=== PATIENT | female | born 1980 | race African-American/Black ===

== ENCOUNTER 2017-05-01 08:39 | Emergency (ER) | payer OTHER ==
[2017-05-01 08:46] VITALS: BP 138/97; PULSE 93; TEMP 98; BMI 21.0
--- NOTE | 2017-05-01 09:18 | PDOC ---
History of Present Illness - General Chief Complaint: Injury Stated Complaint: RIGHT Shoulder Dislocation Time Seen by Provider: 05/01/17 09:15 History Source: Patient Exam Limitations: No Limitations - History of Present Illness Initial Comments: 05/01/17 09:30 slipped and fell on the ice landing on her right shoulder. had a deformity and was unable to lift and as she was registered felt a pop come. Has never had a shoulder dislocation in the past, denies any other injury. Denies numbness or tingling to hands, no head injury Occurred: reports: just prior to arrival Severity: reports: mild, moderate Pain Location: reports: upper extremity (right shoulder ) Loss of Consciousness: no loss of consciousness Associated Symptoms (Fall): denies symptoms Past History - Travel Traveled outside of the country in the last 30 days: No Close contact w/someone who was outside of country & ill: No - Past Medical History Allergies/Adverse Reactions: Allergies Allergy/AdvReac Type Severity Reaction Status Date / Time No Known Allergies Allergy Verified 05/01/17 08:46 Home Medications: Ambulatory Orders Oxycodone HCl/Acetaminophen [Percocet 5-325 mg Tablet -] 1 - 2 tab PO Q4H PRN # 10 tablet MDD 4 05/01/17 CVA: No COPD: No - Suicide/Smoking/Psychosocial Hx Smoking History: Never smoked Hx Alcohol Use: Yes (SOCIAL) Drug/Substance Use Hx: No Substance Use Type: None Review of Systems - Review of Systems Able to Perform ROS?: Yes Is the patient limited Hebrew proficient: Yes Constitutional: Yes: Symptoms Reported, See HPI Respiratory: Yes: See HPI. No: Symptoms reported, Cough, Shortness of Breath, Wheezing All Other Systems: Reviewed and Negative *Physical Exam - Vital Signs Last Vital Signs Temp Pulse Resp BP Pulse Ox 98.0 F 93 H 20 138/97 98 05/01/17 08:42 05/01/17 08:42 05/01/17 08:42 05/01/17 08:42 05/01/17 08:42 - Physical Exam General Appearance: Yes: Nourished, Appropriately Dressed, Mild Distress, Moderate Distress HEENT: positive: SANDY, Normal ENT Inspection, TMs Normal, Pharynx Normal Neck: positive: Supple. negative: Tender, Lymphadenopathy (R), Lymphadenopathy (L) Respiratory/Chest: positive: Lungs Clear, Normal Breath Sounds Musculoskeletal: positive: Normal Inspection Extremity: positive: Normal Capillary Refill, Tender. negative: Normal Inspection, Normal Range of Motion (agent with tenderness and fullness to right shoulder capsule, unable to abduct past approximately 30, has no crepitus or step-offs to clavicle or scapula but tender to the upper humeral area. Hand is strong flexion and extension, and neurovascular intact to fingers) Integumentary: positive: Normal Color Neurologic: positive: chronic specialist II-XII NML intact, Fully Oriented, Alert, Normal Mood/ Affect, Normal Response, Motor Strength 5/5 Progress Note - Progress Note Progress Note: X-ray negative for fractures or dislocation, no evidence of before meals separation or any other joint deformity. Sling provided, will give Percocet No. 10 tablets and referred to orthopedist for further evaluation *DC/Admit/Observation/Transfer Diagnosis at time of Disposition: Right shoulder injury Qualifiers: Encounter type: initial encounter Qualified Code(s): S49.91XA - Unspecified injury of right shoulder and upper arm, initial encounter - Discharge Dispostion Disposition: HOME Condition at time of disposition: Stable Admit: No - Prescriptions Prescriptions: Oxycodone HCl/Acetaminophen [Percocet 5-325 mg Tablet -] 1 - 2 tab PO Q4H PRN # 10 tablet MDD 4 PRN Reason: Pain - Referrals Referrals: John Ramos MD [Staff Physician] - - Patient Instructions Printed Discharge Instructions: DI for Shoulder Sprain Additional Instructions: Rest, ice to area on and off for 15 minutes 4-6 times a day Avoid heavy lifting or exercise until pain and swelling is resolved or until further directed Keep area highly elevated to reduce swelling Use splints/Yoseph wrap as directed Followup with orthopedist in one to 2 days if not improving, if significantly improved may wait one week for followup with orthopedist May use ibuprofen 2-200 mg tablets every 6 hours as needed for pain - Post Discharge Activity Forms/Work/School Notes: Back to Work, Parent(s) Back to Work Note
[2017-05-01] MEDS ORDERED: IBUPROFEN 600 MG TABLET (FP) PO ONE (09:31)
== END 2017-05-01 09:53 | disposition home or self-care (01) ==
LOC: JERFT 08:39
DX: S49.81XA Other specified injuries of right shoulder and upper arm, initial encounter (principal); W00.2XXA Other fall from one level to another due to ice and snow, initial encounter; Y93.89 Activity, other specified; Y92.89 Other specified places as the place of occurrence of the external cause; Y99.8 Other external cause status
CPT/HCPCS: 73030-TC-RT; 99281-25

== ENCOUNTER 2017-09-18 05:41 | Emergency (ER) | payer OTHER ==
[2017-09-18 06:04] VITALS: BP 98/61; PULSE 72; TEMP 97.2; BMI 22.8
--- NOTE | 2017-09-18 06:34 | PDOC ---
History of Present Illness <José Miguel Nunez - Last Filed: 09/18/17 07:07> <Mati Thomas - Last Filed: 09/19/17 23:31> - General Chief Complaint: Chest Pain Stated Complaint: CHEST DISCOMFORT/ 20 WEEKS Time Seen by Provider: 09/18/17 05:53 - History of Present Illness Initial Comments: 09/18/17 06:27 "The patient is a 36 year old female, 20 weeks , who presents to the emergency department with, chest discomfort. The patient describes her chest discomfort as a pleuritic, nonradiating, sharp, midsternal chest pain. She reports that the pain has been present for several days but acutely worsened last night. Pt denies SOB but states that the pain prohibits her from inhaling fully. The patient reports that 2 weeks ago when traveling back from [place] on business she began to feel a numbness and pain shooting up from her right calf that gradually extended to her right buttock. She denies any significant swelling in her legs but still feels the numbness and pain. She denies recent fevers, chills, headache or dizziness. She denies recent nausea, vomit, diarrhea or constipation. She denies recent dysuria, frequency, urgency or hematuria. Allergies: NKA Past surgical history: None reported. Social history: Nonsmoker. Denies EtOH use and recreational drug use. " (Mati Thomas) Past History <José Miguel Nunez - Last Filed: 09/18/17 07:07> - Past Medical History CVA: No COPD: No - Suicide/Smoking/Psychosocial Hx Smoking History: Never smoked Have you smoked in the past 12 months: No Information on smoking cessation initiated: No Hx Alcohol Use: No Drug/Substance Use Hx: No Substance Use Type: None <Mati Thomas - Last Filed: 09/19/17 23:31> - Past Medical History Allergies/Adverse Reactions: Allergies Allergy/AdvReac Type Severity Reaction Status Date / Time No Known Allergies Allergy Verified 09/18/17 05:59 Home Medications: Ambulatory Orders Oxycodone HCl/Acetaminophen [Percocet 5-325 mg Tablet -] 1 - 2 tab PO Q4H PRN # 10 tablet MDD 4 05/01/17 Review of Systems <José Miguel Nunez - Last Filed: 09/18/17 07:07> <Mati Thomas - Last Filed: 09/19/17 23:31> - Review of Systems Comments:: 09/18/17 06:30 "GENERAL/CONSTITUTIONAL: No fever or chills. No weakness. HEAD, EYES, EARS, NOSE AND THROAT: No change in vision. No ear pain or discharge. No sore throat. CARDIOVASCULAR: + Chest pain. No shortness of breath. RESPIRATORY: No cough, wheezing, or hemoptysis. GASTROINTESTINAL: No nausea, vomiting, diarrhea or constipation. GENITOURINARY: No dysuria, frequency, or change in urination. MUSCULOSKELETAL: + Pain radiating up from the right calf to the right buttock. No joint or muscle swelling. No neck or back pain. SKIN: No rash NEUROLOGIC: No headache, vertigo, loss of consciousness, or change in strength. ENDOCRINE: No increased thirst. No abnormal weight change. HEMATOLOGIC/LYMPHATIC: No anemia, easy bleeding, or history of blood clots. ALLERGIC/IMMUNOLOGIC: No hives or skin allergy. " (Mati Thomas) *Physical Exam <José Miguel Nunez - Last Filed: 09/18/17 07:07> <Mati Thomas - Last Filed: 09/19/17 23:31> - Vital Signs Last Vital Signs Temp Pulse Resp BP Pulse Ox 97.2 F L 72 18 98/61 99 09/18/17 05:59 09/18/17 05:59 09/18/17 05:59 09/18/17 05:59 09/18/17 05:59 - Physical Exam Comments: 09/18/17 06:30 """GENERAL: Awake, alert, and fully oriented, in no acute distress. HEAD: No signs of trauma EYES: PERRLA, EOMI, sclera anicteric, conjunctiva clear ENT: Auricles normal inspection, hearing grossly normal, nares patent, oropharynx clear without exudates. Moist mucosa NECK: Nontender, no stepoffs, Normal ROM, supple, no lymphadenopathy, JVD, or masses LUNGS: Breath sounds equal, clear to auscultation bilaterally. No wheezes, and no crackles HEART: Regular rate and rhythm, normal S1 and S2, no murmurs, rubs or gallops ABDOMEN: Gravid, Soft, nontender, normoactive bowel sounds. No guarding, no rebound. No masses EXTREMITIES: Normal range of motion, no edema. No clubbing or cyanosis. No cords, erythema, or tenderness NEUROLOGICAL: Cranial nerves II through XII intact. 5/5 strength and sensation in all extremities, Normal speech, normal gait, normal cerebellar function SKIN: Warm, Dry, normal turgor, no rashes or lesions noted. """ (Mati Thomas) Heart Score/ECG Review <José Miguel Nunez - Last Filed: 09/18/17 07:07> - History History: Slightly suspicious - Electrocardiogram EKG: Normal - Age Age: </= 45 - Risk Factors Based on the list above the patient has:: No risk factors known - Troponin Troponin: </= normal limit - Score Heart Score - Total: 0 <Mati Thomas - Last Filed: 09/19/17 23:31> - ECG Impressions Comment:: 09/18/17 06:31 NSR, no ARTEMIO/STDs, no TWIs, axis wnl, intervals wnl, rate 78 (Mati Thomas) ED Treatment Course - LABORATORY CBC & Chemistry Diagram: 09/18/17 06:41 09/18/17 06:41 <José Miguel Nunez - Last Filed: 09/18/17 07:07> - LABORATORY CBC & Chemistry Diagram: 09/18/17 06:41 09/18/17 06:41 <Mati Thomas - Last Filed: 09/19/17 23:31> - ADDITIONAL ORDERS Additional order review: 09/18/17 06:41 RBC 3.89 MCV 90.1 MCHC 35.5 RDW 13.6 MPV 9.2 Neutrophils % 72.2 Lymphocytes % 20.6 Monocytes % 4.4 Eosinophils % 2.2 Basophils % 0.6 - RADIOLOGY Radiology Studies Ordered: Category Date Time Status DUPLEX VASCUL US-2LEGS [US] Stat Ultrasound 09/18/17 06:20 Completed - Medications Given in the ED: ED Medications Discontinued Medications Generic Name Dose Route Start Last Admin Trade Name Freq PRN Reason Stop Dose Admin Sodium Chloride 1,000 mls @ 1,000 mls/hr 09/18/17 06:37 09/18/17 07:00 Normal Saline - IV 09/18/17 07:36 1,000 mls/hr ASDIR STA Administration Medical Decision Making <José Miguel Nunez - Last Filed: 09/18/17 07:07> <Mati Thomas - Last Filed: 09/19/17 23:31> - Medical Decision Making 09/18/17 06:31 36 F @ 20 weeks with pleuritic chest pain preceded by R calf pain and numbness. Will need to consider PE. Pt with no infectious symptoms and no abnormal lung sounds to suggest PNA. No evidence of ischemia on EKG. - Labs, trop, ddimer - Doppler of legs to r/o DVT I discussed with pt the potential need for CT imaging with contrast to r/o PE if her ddimer returns elevated. Pt expresses understanding but has not yet decided whether she wants the CT or not. Pt signed out to oncoming attending at 7am, pending labwork and re-evaluation. ( Mati Thomas) *DC/Admit/Observation/Transfer <José Miguel Nunez - Last Filed: 09/18/17 07:07> <Mati Thomas - Last Filed: 09/19/17 23:31> Diagnosis at time of Disposition: Atypical chest pain - Discharge Dispostion Disposition: HOME Condition at time of disposition: Stable - Referrals Referrals: Dr. Liriano, two-3 days [Other] - Patient Instructions Printed Discharge Instructions: DI for Atypical Chest Pain Additional Instructions: Your preliminary evaluation shows no evidence of clots. No test is perfect and giving a family history, there is a small chance the your symptoms are consistent with a pulmonary embolism. You were given the option of a CT angiogram of chest which have decided to defer at this time. You expressed understanding of the risk of undiagnosed pulmonary embolism at this time which may lead to respiratory failure and even . Please return immediately for worsening symptoms. - Post Discharge Activity Forms/Work/School Notes: Back to Work - Attestations Scribe Attestion: 09/18/17 07:07 Documentation prepared by José Miguel Nunez, acting as medical professionals for Mati Thomas MD. (José Miguel Nunez) Physician Attestion: 09/19/17 23:31 I, Dr. Mati Thomas MD, attest that this document has been prepared under my direction and personally reviewed by me in its entirety. I further attest, that it accurately reflects all work, treatment, procedures and medical decision -making performed by me. (Mati Thomas)
[2017-09-18] MEDS ORDERED: SODIUM CHLORIDE 1,000 ML IV STA (06:37)
[2017-09-18 06:59] LABS: BASO % 0.6 % (0-2.0); EOS % 2.2 % (0-4.5); HEMOGLOBIN 12.4 GM/dL (10.7-15.3); LYMPH % 20.6 % (8-40); MCH 31.9 pg (25.7-33.7); MCHC 35.5 g/dl (32.0-36.0); MEAN CELL VOLUME 90.1 fl (80-96); MEAN PLT VOLUME 9.2 fl (7.5-11.1); MONO % 4.4 % (3.8-10.2); NEUT % 72.2 % (42.8-82.8); PLATELET COUNT 202 K/MM3 (134-434); RBC 3.89 M/mm3 (3.60-5.2); RDW 13.6 % (11.6-15.6); WHITE BLOOD COUNT 8.7 K/mm3 (4.0-10.0)
[2017-09-18 07:14] LABS: INR 0.93 (0.82-1.09); PROTHROMBIN TIME (PATIENT) 10.5 SEC (9.7-13.0)
[2017-09-18 07:17] LABS: ACTIVATED PTT 34.8 SECONDS (26.9-34.4)
[2017-09-18 07:28] LABS: ALBUMIN 3.1 g/dl (3.4-5.0); ALK PHOS 74 U/L (45-117); ANION GAP 7 (8-16); BILIRUBIN,TOTAL 0.3 mg/dL (0.2-1.0); BLOOD UREA NITROGEN 5 mg/dL (7-18); CALCIUM 8.3 mg/dL (8.5-10.1); CHLORIDE 106 mmol/L (98-107); CO2 23 mmol/L (21-32); CREATININE 0.5 mg/dL (0.55-1.02); GLUCOSE,RANDOM 75 mg/dL (74-106); SGOT/AST 15 U/L (15-37); SGPT/ALT 16 U/L (12-78); SODIUM 136 mmol/L (136-145); TOT PROT 6.9 g/dl (6.4-8.2)
[2017-09-18 07:50] LABS: N-TERMINAL BNP 27.98 pg/ml (5-125)
[2017-09-18 09:01] LABS: URINE APPEARANCE CLEAR; URINE BILIRUBIN NEGATIVE (<2.0 mg/dL); URINE BLOOD NEGATIVE (NEGATIVE); URINE COLOR STRAW; URINE GLUCOSE (UA) NEGATIVE (NEGATIVE); URINE KETONE NEGATIVE (NEGATIVE); URINE LEUK ESTERASE NEGATIVE (NEGATIVE); URINE NITRITE NEGATIVE (NEGATIVE); URINE PROTEIN NEGATIVE (NEGATIVE); URINE UROBILINOGEN NEGATIVE mg/dL (0.2-1.0)
--- NOTE | 2017-09-18 12:03 | PDOC ---
*Physical Exam - Vital Signs Last Vital Signs Temp Pulse Resp BP Pulse Ox 97.2 F L 72 18 98/61 99 09/18/17 05:59 09/18/17 05:59 09/18/17 05:59 09/18/17 05:59 09/18/17 05:59 - Physical Exam Comments: 09/18/17 12:09 Patient was endorsed to me by Dr. Thomas. Patient is a 36-year-old female, 1 para 0 20 weeks gestation who presented with pleuritic right-sided subscapular pain radiating to the anterior chest. Patient's vital signs are normal and stable. Oxygen saturation is 99% on room air. High sensitivity d- dimer is negative and lower extremity Doppler ultrasound shows no evidence of DVT. Given the high sensitivity of the d-dimer for presence of pulmonary emboli which approaches 99%, PE is highly unlikely at this time. I discussed the risk and benefit of CTA of chest with the patient and at this time she prefers not to undergo additional studies. Patient expressed understanding that there is a small chance that her presentation is consistent with pulmonary embolus she does not wish CTA at this time. I discussed the case with the patient's [employer] and she agrees with involvement of the patient in the decision-making process. Patient will follow-up with [employer] or return immediately for worsening symptoms. ED Treatment Course - LABORATORY CBC & Chemistry Diagram: 09/18/17 06:41 09/18/17 06:41 - ADDITIONAL ORDERS Additional order review: Laboratory Results 09/18/17 09/18/17 09/18/17 07:00 06:41 06:41 PT with INR 10.50 INR 0.93 PTT (Actin FS) 34.8 H D-Dimer Sodium 136 Potassium 4.0 Chloride 106 Carbon Dioxide 23 Anion Gap 7 L BUN 5 L Creatinine 0.5 L Creat Clearance w eGFR > 60 Random Glucose 75 Calcium 8.3 L Total Bilirubin 0.3 AST 15 ALT 16 Alkaline Phosphatase 74 Creatine Kinase Troponin I B-Natriuretic Peptide Total Protein 6.9 Albumin 3.1 L Urine Color Straw Urine Appearance Clear Urine pH 7.0 Ur Specific [place] 1.003 Urine Protein Negative Urine Glucose (UA) Negative Urine Ketones Negative Urine Blood Negative Urine Nitrite Negative Urine Bilirubin Negative Urine Urobilinogen Negative Ur Leukocyte Esterase Negative 09/18/17 09/18/17 06:41 06:41 PT with INR INR PTT (Actin FS) D-Dimer 396 Sodium Potassium Chloride Carbon Dioxide Anion Gap BUN Creatinine Creat Clearance w eGFR Random Glucose Calcium Total Bilirubin AST ALT Alkaline Phosphatase Creatine Kinase 38 Troponin I < 0.02 B-Natriuretic Peptide 27.98 Total Protein Albumin Urine Color Urine Appearance Urine pH Ur Specific [place] Urine Protein Urine Glucose (UA) Urine Ketones Urine Blood Urine Nitrite Urine Bilirubin Urine Urobilinogen Ur Leukocyte Esterase 09/18/17 06:41 RBC 3.89 MCV 90.1 MCHC 35.5 RDW 13.6 MPV 9.2 Neutrophils % 72.2 Lymphocytes % 20.6 Monocytes % 4.4 Eosinophils % 2.2 Basophils % 0.6 - Medications Given in the ED: ED Medications Discontinued Medications Generic Name Dose Route Start Last Admin Trade Name Xochitl PRN Reason Stop Dose Admin Sodium Chloride 1,000 mls @ 1,000 mls/hr 09/18/17 06:37 09/18/17 07:00 Normal Saline - IV 09/18/17 07:36 1,000 mls/hr ASDIR STA Administration *DC/Admit/Observation/Transfer Diagnosis at time of Disposition: Atypical chest pain - Discharge Dispostion Disposition: HOME Condition at time of disposition: Stable - Referrals Referrals: Dr. Liriano, two-3 days [Other] - Patient Instructions Printed Discharge Instructions: DI for Atypical Chest Pain Additional Instructions: Your preliminary evaluation shows no evidence of clots. No test is perfect and giving a family history, there is a small chance the your symptoms are consistent with a pulmonary embolism. You were given the option of a CT angiogram of chest which have decided to defer at this time. You expressed understanding of the risk of undiagnosed pulmonary embolism at this time which may lead to respiratory failure and even . Please return immediately for worsening symptoms. - Post Discharge Activity
--- NOTE | 2017-09-18 12:44 | EKG ---
Test Reason : Blood Pressure : / mmHG Vent. Rate : 078 BPM Atrial Rate : 078 BPM P-R Int : 142 ms QRS Dur : 076 ms QT Int : 376 ms P-R-T Axes : 054 062 032 degrees QTc Int : 428 ms NORMAL SINUS RHYTHM NORMAL ECG NO PREVIOUS ECGS AVAILABLE Confirmed by SEDRICK CASAS, JAYLA ([id number]) on 09/18/2017 12:44:16 PM Referred By: Confirmed By:JAYLA DUBOSE MD
== END 2017-09-18 12:47 | disposition home or self-care (01) ==
LOC: JER 05:41
PROC: 3E0337Z Introduction of Electrolytic and Water Balance Substance into Peripheral Vein, Percutaneous Approach (ICD-10-PCS; principal; 2017-09-18)
DX: O26.892 Other specified pregnancy related conditions, second trimester (principal); Z3A.20 20 weeks gestation of pregnancy; R07.89 Other chest pain
CPT/HCPCS: 36415; 80053; 81003; 82550; 83880; 84484; 85025; 85379; 85610; 85730; 93005; 93010; 93970-TC; 99282-25; J7030